=== PATIENT | female | born 1995 | race Two or more races ===

== ENCOUNTER 2017-08-09 10:00 | Emergency (ER) | payer OTHER, BC ==
[2017-08-09] MEDS ORDERED: ASPIRIN 325 MG TABLET PO ONE (10:45)
--- NOTE | 2017-08-09 10:46 | ER Document Report ---
ED Medical Screen (RME) - General Chief Complaint: Gas Exposure Stated Complaint: POSSIBLE CO2 EXPOSURE Time Seen by Provider: 08/09/17 10:42 Notes: RME DISCLOSURE I have seen this patient as part of a Rapid Medical Evaluation and, if applicable, placed any initially appropriate orders. The patient will be seen and fully evaluated, including a full history and physical exam, by a provider ( in Main ED or Fast Track) when a room becomes available. 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 She was exposed for approximately 1 hour and for the past few hours has been having headache lightheadedness chest discomfort and mild shortness of breath but no nausea vomiting numbness tingling weakness. There are several other people at work that have similar symptoms. She is concerned about carbon monoxide or carbon dioxide poisoning. - Related Data Allergies/Adverse Reactions: No Known Allergies Allergy (Unverified 08/09/17 10:03) Physical Exam - Vital signs Vitals: Temp Pulse Resp BP Pulse Ox 98.8 F 82 16 121/70 100 08/09/17 10:03 08/09/17 10:03 08/09/17 10:03 08/09/17 10:03 08/09/17 10:03 Course - Vital Signs Vital signs: Temp Pulse Resp BP Pulse Ox 98.8 F 82 16 121/70 100 08/09/17 10:03 08/09/17 10:03 08/09/17 10:03 08/09/17 10:03 08/09/17 10:03
[2017-08-09 11:19] LABS: ABSOLUTE BASOPHILS # (AUTO) 0.1 10^3/uL (0.0-0.2); ABSOLUTE EOSINOPHILS # (AUTO) 0.2 10^3/uL (0.0-0.6); ABSOLUTE LYMPHOCYTES (AUTO) 3.2 10^3/uL (0.5-4.7); ABSOLUTE MONOCYTES (AUTO) 0.6 10^3/uL (0.1-1.4); ABSOLUTE NEUT (AUTO) 5.5 10^3/uL (1.7-8.2); EOSINOPHILS % (AUTO) 1.8 % (0-6); HEMATOCRIT 43.7 % (36.0-47.0); LYMPHOCYTES % (AUTO) 33.1 % (13-45); MEAN CORPUSCULAR HEMOGLOBIN 31.3 pg (27.0-33.4); MEAN CORPUSCULAR HGB CONC 34.4 g/dL (32.0-36.0); MEAN CORPUSCULAR VOLUME 91 fl (80-97); MONOCYTES % (AUTO) 6.8 % (3-13); PLATELET COUNT 300 10^3/uL (150-450); RED CELL DISTRIBUTION WIDTH 12.7 % (11.5-14.0); SEGMENTED NEUTROPHILS % (AUTO) 57.3 % (42-78); TOTAL CELLS COUNTED % (AUTO) 100 %; WHITE BLOOD COUNT 9.6 10^3/uL (4.0-10.5)
[2017-08-09 11:41] LABS: ALANINE AMINOTRANSFERASE 22 U/L (9-52); ALBUMIN 4.6 g/dL (3.5-5.0); ALKALINE PHOSPHATASE 56 U/L (38-126); ANION GAP 9 (5-19); ASPARTATE AMINO TRANSFERASE 17 U/L (14-36); BILIRUBIN,DIRECT 0.3 mg/dL (0.0-0.4); BILIRUBIN,TOTAL 0.4 mg/dL (0.2-1.3); BLOOD UREA NITROGEN 14 mg/dL (7-20); CALCIUM 9.9 mg/dL (8.4-10.2); CARBON DIOXIDE 30 mmol/L (22-30); CHLORIDE 102 mmol/L (98-107); GLUCOSE 76 mg/dL (75-110); POTASSIUM 4.4 mmol/L (3.6-5.0); SODIUM 140.8 mmol/L (137-145); TOTAL PROTEIN 7.5 g/dL (6.3-8.2)
--- NOTE | 2017-08-09 11:42 | RADIOLOGY REPORT (SQ) ---
EXAM DESCRIPTION: CHEST PA/LAT COMPLETED DATE/TIME: 08/09/2017 11:19 am REASON FOR STUDY: SOB chest discomfort COMPARISON: None. NUMBER OF VIEWS: Two view. TECHNIQUE: Frontal and lateral radiographic views of the chest acquired. LIMITATIONS: None. FINDINGS: LUNGS AND PLEURA: No opacities, masses or pneumothorax. No pleural effusion. MEDIASTINUM AND HILAR STRUCTURES: No masses or contour abnormalities. HEART AND VASCULATURE: Heart normal size. No evidence for failure. BONY STRUCTURES: No acute findings. HARDWARE: None. OTHER: No other significant finding. IMPRESSION: NO SIGNIFICANT RADIOGRAPHIC FINDING IN THE CHEST. TECHNICAL DOCUMENTATION: JOB ID: [id number] [employer]- All Rights Reserved Reading location - IP/workstation name: [email or web address]
--- NOTE | 2017-08-09 12:02 | ER Document Report ---
ED Burn/Smoke/Toxic Fumes - General Chief Complaint: Gas Exposure Stated Complaint: POSSIBLE CO2 EXPOSURE Time Seen by Provider: 08/09/17 10:42 Mode of Arrival: Ambulatory Information source: Patient Notes: 21-year-old non-smoking female exposed to a gas that was leaking at the [employer] where she worked for about an hour. The fire department cleared the area and stated that the CO2 level was high. She came to the emergency room to be checked. She has a mild frontal headache and some chest tightness. No history of asthma. No palpitations. No nausea vomiting or diarrhea. No abdominal pain. - Related Data Allergies/Adverse Reactions: No Known Allergies Allergy (Unverified 08/09/17 10:03) Past Medical History - General Information source: Patient - Social History Smoking Status: Never Smoker Chew tobacco use (# tins/day): No Frequency of alcohol use: None Drug Abuse: None Occupation: [employer] Lives with: Spouse/Significant other Family History: Reviewed & Not Pertinent Patient has suicidal ideation: No Patient has homicidal ideation: No - Medical History Medical History: Negative Renal/ Medical History: Denies: Hx Peritoneal Dialysis Surgical Hx: Negative Review of Systems - Review of Systems Constitutional: No symptoms reported EENT: No symptoms reported Cardiovascular: No symptoms reported Respiratory: See HPI Gastrointestinal: No symptoms reported Genitourinary: No symptoms reported Female Genitourinary: No symptoms reported Musculoskeletal: No symptoms reported Skin: No symptoms reported Hematologic/Lymphatic: No symptoms reported Neurological/Psychological: See HPI Physical Exam - Vital signs Vitals: Temp Pulse Resp BP Pulse Ox 98.8 F 82 16 121/70 100 08/09/17 10:03 08/09/17 10:03 08/09/17 10:03 08/09/17 10:03 08/09/17 10:03 Interpretation: Normal - General General appearance: Appears well, Alert In distress: None - HEENT Head: Normocephalic, Atraumatic Eyes: Normal Conjunctiva: Normal Extraocular movements intact: Yes Pupils: PERRL Tympanic membrane: Normal Mucous membranes: Normal Pharynx: Normal Neck: Normal, Supple. No: Lymphadenopathy, Thyromegally - Respiratory Respiratory status: No respiratory distress Chest status: Nontender Breath sounds: Normal Chest palpation: Normal - Cardiovascular Rhythm: Regular Heart sounds: Normal auscultation Murmur: No - Abdominal Inspection: Normal Distension: No distension Bowel sounds: Normal Tenderness: Nontender Organomegaly: No organomegaly - Back Back: Normal, Nontender. No: CVA tenderness - Extremities General upper extremity: Normal inspection, Nontender, Normal color, Normal ROM , Normal temperature General lower extremity: Normal inspection, Nontender, Normal color, Normal ROM , Normal temperature, Normal weight bearing. No: Yandel's sign - Neurological Neuro grossly intact: Yes Cognition: Normal Orientation: AAOx4 [place] Coma Scale Eye Opening: Spontaneous Mikal Coma Scale Verbal: Oriented [place] Coma Scale Motor: Obeys Commands [place] Coma Scale Total: 15 Speech: Normal Motor strength normal: LUE, RUE, LLE, RLE Sensory: Normal - Psychological Associated symptoms: Normal affect, Normal mood - Skin Skin Temperature: Warm Skin Moisture: Dry Skin Color: Normal Skin irregularity: negative: Rash Course - Re-evaluation Re-evalutation: 08/09/17 12:[address] jackson the patient can be discharged the lab work is within normal limits, troponin negative, the carboxyhemoglobin is 2.4% which he is not concerned about. The patient is a non-smoker. She has a mild headache and some chest tightness but her lungs are clear at this time and vital signs are stable. EKG is normal sinus rhythm and the chest x-ray is negative. - Vital Signs Vital signs: Temp Pulse Resp BP Pulse Ox 97.7 F 91 18 113/70 100 08/09/17 12:32 08/09/17 12:32 08/09/17 12:32 08/09/17 12:32 08/09/17 12:32 - Laboratory Result Diagrams: 08/09/17 11:00 08/09/17 11:00 Laboratory results interpreted by me: 08/09/17 11:00 Carboxyhemoglobin 2.4 H Discharge - Discharge Clinical Impression: gas inhalaation at work, Mild headache Chest pain Qualifiers: Chest pain type: unspecified Qualified Code(s): R07.9 - Chest pain, unspecified Condition: Good Disposition: HOME, SELF-CARE Instructions: Chest Pain of Unclear Cause ([facility]), Headache ([facility]) Additional Instructions: to er any concerns or worsening of the symptoms copy of labs, imaging, ekg given to you do not return to the [facility] until cleared by the fire department/ linux dev[employer] engineer. Forms: Return to Work Referrals: ANGUS LITTLE MD [ACTIVE STAFF] - Follow up as needed
[2017-08-09 12:33] VITALS: BP 113/70
--- NOTE | 2017-08-09 13:27 | EKG REPORT ---
SEVERITY:- NORMAL ECG - SINUS RHYTHM : Confirmed by: Jack Son MD 09-Aug-2017 13:26:38
== END 2017-08-09 12:44 | disposition home or self-care (01) ==
LOC: ER 10:00
DX: T58.91XA Toxic effect of carbon monoxide from unspecified source, accidental (unintentional), initial encounter (principal); R51 Headache; R07.89 Other chest pain; Y92.511 Restaurant or cafe as the place of occurrence of the external cause; Y99.0 Civilian activity done for income or pay
CPT/HCPCS: 36415; 71046; 80053; 81025; 82375; 84484; 85025; 93005; 93010; 99284